=== PATIENT | female | born 1980 | race Caucasian/White ===

== ENCOUNTER 2021-01-02 19:37 | Emergency (ER) | payer OTHER ==
[2021-01-02 20:45] VITALS: BP 123/78; PULSE 74; RESP 18; TEMP 98
--- NOTE | 2021-01-02 22:10 | ED ---
General Adult HPI - General Chief complaint: Recheck/Abnormal Lab/Rx Stated complaint: Allergic reaction to peanut Time Seen by Provider: 01/02/21 21:45 Source: patient, RN notes reviewed Mode of arrival: ambulatory Limitations: no limitations - History of Present Illness Initial comments: 40-year-old female presents to the emergency room for a chief complaint of ALLERGIC reaction. Patient reports that around 5 hours prior to arrival she accidentally ate a part of a peanut that was on an ice cream Friday. She states she started to get tingling in her tongue. 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 Patient went to urgent care and was given IM Benadryl 50 mg and 125 mg of Solu-Medrol IM. Patient states that they directed her to come to the emergency room for additional monitoring. Patient states that all her symptoms have since resolved. She denies swelling of the lips tongue or throat. Denies shortness of breath or wheezing.Patient has no other complaints at this time including shortness of breath, chest pain, abdominal pain, nausea or vomiting, headache, or visual changes. - Related Data Previous Rx's Medication Instructions Recorded EPINEPHrine (Auto Inject) [Epipen] 0.3 mg IM ONCE PRN #1 each 01/02/21 predniSONE 50 mg PO DAILY #4 tablet 01/02/21 Allergies Allergy/AdvReac Type Severity Reaction Status Date / Time peanut AdvReac Anaphylaxis Verified 01/02/21 20:45 Review of Systems ROS Statement: Those systems with pertinent positive or pertinent negative responses have been documented in the HPI. ROS Other: All systems not noted in ROS Statement are negative. Past Medical History Past Medical History: Asthma History of Any Multi-Drug Resistant Organisms: None Reported Past Surgical History: No Surgical Hx Reported Past Psychological History: No Psychological Hx Reported Smoking Status: Never smoker Past Alcohol Use History: None Reported Past Drug Use History: None Reported General Exam Limitations: no limitations General appearance: alert, in no apparent distress Head exam: Present: atraumatic Eye exam: Present: normal appearance, PERRL, EOMI. Absent: scleral icterus, conjunctival injection, periorbital swelling ENT exam: Present: normal exam, normal oropharynx (No angioedema), mucous membranes moist Neck exam: Present: normal inspection, full ROM. Absent: tenderness, meningismus, lymphadenopathy Respiratory exam: Present: normal lung sounds bilaterally. Absent: respiratory distress, wheezes, rales, rhonchi, stridor Cardiovascular Exam: Present: regular rate, normal rhythm, normal heart sounds. Absent: systolic murmur, diastolic murmur, rubs, gallop, clicks Course Vital Signs 01/02/21 20:41 Temperature 98 F Pulse Rate 74 Respiratory 18 Rate Blood Pressure 123/78 O2 Sat by Pulse 97 Oximetry Medical Decision Making - Medical Decision Making Patient was monitored for 3 hours in the emergency room. She did not have any further symptoms develop. Patient is stable for discharge home. She will be discharged home with prednisone. She will continue to take antihistamines. Her EpiPen is and this will be prescribed. She will follow-up with her doctor. Disposition Clinical Impression: Allergic reaction Disposition: HOME SELF-CARE Condition: Good Instructions (If sedation given, give patient instructions): General Allergic Reaction (ED) Additional Instructions: Please take prednisone daily for the next 4 days starting tomorrow. Take Claritin or Benadryl. You Follow-up with your doctor in one to 2 days. Return to the emergency room for any worsening symptoms such as swelling of the lips tongue or throat or shortness of breath. Prescriptions: EPINEPHrine (Auto Inject) [Epipen] 0.3 mg IM ONCE PRN #1 each PRN Reason: Anaphylaxis predniSONE 50 mg PO DAILY #4 tablet Is patient prescribed a controlled substance at d/c from ED?: No Referrals: Nonstaff,Physician [Primary Care Provider] - 1-2 days Time of Disposition: 22:08
== END 2021-01-02 22:25 | disposition home or self-care (01) ==
LOC: EC 19:37
DX: T78.40XA Allergy, unspecified, initial encounter (principal); J45.909 Unspecified asthma, uncomplicated; Z91.010 Allergy to peanuts
CPT/HCPCS: 99283